=== PATIENT | female | born 1985 | race Caucasian/White ===

== ENCOUNTER 2018-10-07 08:00 | Emergency (ER) | payer OTHER ==
[~2018-10-07] VITALS: Ht 152.4 cm; Wt 63.0 kg
[~2018-10-07 08:00] MED LIST: ACET325T45 PO; TRAM50TA2 PO
[2018-10-07 08:01] VITALS: Ht 152.4 cm; Wt 63.0 kg
[2018-10-07] MEDS ORDERED: KETOROLAC 30 MG INJ IM STA (08:17)
[2018-10-07] MEDS ORDERED: ONDANSETRON (ODT) 4 MG TAB ODT STA (08:17)
[2018-10-07 09:38] VITALS: BP 112/67; PULSE 68; RESP 18
--- NOTE | 2018-10-07 09:39 | ERD ---
ER Documentation Chief Complaint Chief Complaint Rt upper quadrant pain w/nausea, >mths, worse after eating. HPI 33-year-old female presented to ED for right upper quadrant pain over the last few months. Patient states the pain is worse after she eats she describes as a sharp sensation that comes and goes. The patient has not seen any healthcare provider for this yet. Patient is presenting afebrile with vitals and stable limit. Patient states she is pretty healthy and has no past medical history does not take medications for anything and has no allergies to medications. Patient does not think she is . Patient rates the pain 8 out of 10 when it is at its worst but currently she is not experiencing discomfort. ROS All systems reviewed and are negative except as per history of present illness. Medications Home Meds Active Scripts Acetaminophen* (Acetaminophen*) 325 Mg Tablet, 325 MG PO Q4H PRN for PAIN AND OR ELEVATED TEMP, #30 TAB Prov:ADALI RYAN PA-C 10/07/18 Tramadol HCl (Tramadol HCl) 50 Mg Tablet, 50 MG PO Q4 PRN for PAIN, #20 TAB Prov:ADALI RYAN PA-C 10/07/18 Allergies Allergies: Coded Allergies: No Known Allergy (Unverified , 10/07/18) PMhx/Soc Medical and Surgical Hx: pt denies Medical Hx, pt denies Surgical Hx Hx Alcohol Use: No Hx Substance Use: No Hx Tobacco Use: Yes (OCCASSIONAL) Smoking Status: Never smoker FmHx Family History: No diabetes, No coronary disease, No other Physical Exam Vitals Vital Signs Date Temp Pulse Resp B/P (MAP) Pulse Ox O2 O2 Flow FiO2 Time Delivery Rate 10/07/18 97.8 67 18 118/65 100 08:01 (82) Physical Exam GENERAL: The patient is well-appearing, well-nourished, in no acute distress HEENT: Atraumatic. Conjunctivae are pink. Pupils equal, round, and reactive to light. There is no scleral icterus. Tympanic membranes clear bilaterally. Oropharynx clear. No nystagmus or photophobia. NECK: C-spine is soft and supple. There is no meningismus. There is no cervical lymphadenopathy. CHEST: Clear to auscultation bilaterally. There are no rales, wheezes or rhonchi. HEART: Regular rate and rhythm. No murmurs, clicks, rubs or gallops. ABDOMEN: Right upper quadrant tenderness to palpation, positive Moise sign. BACK: No midline or flank tenderness. Result Diagram: 10/07/1882310/07/18823 Results 24 hrs Laboratory Tests Test 10/07/18 08:24 10/07/18 08:32 White Blood Count 7.5 10^3/ul Red Blood Count 4.70 10^6/ul Hemoglobin 13.6 g/dl Hematocrit 41.8 % Mean Corpuscular Volume 88.9 fl Mean Corpuscular Hemoglobin 28.9 pg Mean Corpuscular Hemoglobin Concent 32.5 g/dl Red Cell Distribution Width 12.9 % Platelet Count 248 10^3/UL Mean Platelet Volume 9.8 fl Immature Granulocytes % 0.300 % Neutrophils % 64.0 % Lymphocytes % 26.4 % Monocytes % 7.2 % Eosinophils % 1.7 % Basophils % 0.4 % Nucleated Red Blood Cells % 0.0 /100WBC Immature Granulocytes # 0.020 10^3/ul Neutrophils # 4.8 10^3/ul Lymphocytes # 2.0 10^3/ul Monocytes # 0.5 10^3/ul Eosinophils # 0.1 10^3/ul Basophils # 0.0 10^3/ul Nucleated Red Blood Cells # 0.0 10^3/ul Sodium Level 140 mmol/L Potassium Level 3.8 mmol/L Chloride Level 104 mmol/L Carbon Dioxide Level 28 mmol/L Anion Gap 8 Blood Urea Nitrogen 14 mg/dl Creatinine 0.51 mg/dl Est Glomerular Filtrat Rate mL/min > 60 mL/min Glucose Level 95 mg/dl Calcium Level 9.6 mg/dl Total Bilirubin 0.5 mg/dl Direct Bilirubin 0.00 mg/dl Indirect Bilirubin 0.5 mg/dl Aspartate Amino Transf (AST/SGOT) 20 IU/L Alanine Aminotransferase (ALT/SGPT) 24 IU/L Alkaline Phosphatase 47 IU/L Total Protein 7.7 g/dl Albumin 4.4 g/dl Globulin 3.30 g/dl Albumin/Globulin Ratio 1.33 POC Beta HCG, Qualitative NEGATIVE Current Medications Medications Dose Sig/Arabella Start Time Status Last (Trade) Ordered Route PRN Stop Time Admin Dose Reason Admin Ondansetron 4 mg ONCE STAT 10/07/18 DC 10/07/18 HCl (Zofran ODT 08:17 08:36 Odt) 8/12/19 08:20 Ketorolac 30 mg ONCE STAT 10/07/18 DC 10/07/18 Tromethamine IM : 08:37 (Toradol) 10/07/18 08:20 Procedures/MDM ED course: The patient was stable throughout the ED course. The patient and/or family informed of laboratory and diagnostic imaging results throughout the ED course. Radiology: PROCEDURE: US Abdomen (right upper quadrant). CLINICAL INDICATION: Abdominal pain TECHNIQUE: Multiple real-time longitudinal and transverse images of the right upper quadrant of the abdomen were acquired utilizing a curved array transducer. Images were reviewed on a high-resolution PACS workstation. COMPARISON: None FINDINGS: The liver is normal in size and echogenicity without focal mass or intrahepatic biliary dilatation. Multiple stones are present in the gallbladder. There is no pericholecystic fluid or gallbladder wall thickening. No intra or extrahepatic biliary dilatation is seen. The common bile duct measures 2.5 mm in maximal dimension. The visualized portions of the pancreas are unremarkable with obscuration of the tail of the pancreas. No free fluid is identified. The right kidney measures 11.9 cm in length. There is normal echogenicity within the right kidney. There is no perinephric fluid collection. No hydronephrosis, mass, or calculus is seen. IMPRESSION: Cholelithiasis without evidence of acute cholecystitis. Otherwise, unremarkable right upper quadrant ultrasound. Medications given in ER: Toradol Zofran Patient tolerated medication well with no adverse reactions. Patient reported improvement in pain. Medical decision makin-year-old female presented to ED for right upper quadrant pain with nausea over the last few months. Patient states the pain is worse after she eats. Physical exam revealed a tender right upper quadrant that re-provoked the pain. Patient states the pain was an 8 out of 10. Patient was given Toradol and Zofran for nausea and pain. The patient was sent for an ultrasound which revealed Cholelithiasis without evidence of acute cholecystitis. The patient is afebrile and screening was negative. The patient's blood work was u nremarkable and showed no signs of leukocytosis. At this time I have low suspicion for DKA, bowel perforation, cholecystitis, choledocholithiasis, ascending cholangitis, hepatic abscess, pancreatitis, PUD, gastritis, GERD, splenic rupture, diverticulitis,, pyelonephritis, nephrolithiasis, appendicitis, constipation, , ectopic , PID, ovarian torsion or tubo-ovarian abscess. Upon reevaluation the patient reports an improvement in symptoms of nausea and pain. Advised patient that she needs to follow-up with a primary care provider may need to see a GI doctor to have her gallbladder removed if it becomes more symptomatic. The patient is agreement treatment plan all questions were answered upon discharge Prescription for home: Tramadol Motrin I have discussed with the patient proper use and common side effects to expert with the medication . I advised the patient/family to speak with the pharmacist dispensing the medication to be advised of any potential drug int eractions with other medication or supplements they may be taking. Discharge: At this time, patient is stable for discharge and outpatient management. I have instructed the patient to follow-up with his\her primary care physician in 1 to 2 days. I have discussed with the patient the possibility of needing to see a specialist for further work-up and imaging studies if symptoms persist. I have instructed the patient to promptly return to the ER for any new or worsening symptoms including increased pain, fever, nausea, vomiting, weakness or LOC. The patient and\or family expressed understanding of and agreement with this plan. All questions were answered. Home care instructions were provided. Disclaimer: Inadvertent spelling and grammatical errors are likely due to EHR\dictation s oftware use and do not reflect on the overall quality of patient care. Also, please note that the electronic time recorded on the note does not necessarily reflect the actual time of the patient encounter. Departure Diagnosis: Primary Impression: Cholelithiasis Cholelithiasis location: gallbladder Cholecystitis presence: without cholecystitis Biliary obstruction: without biliary obstruction Qualified Codes: K80.20 - Calculus of gallbladder without cholecystitis without obstruction Additional Impression: Abdominal pain Abdominal location: right upper quadrant Qualified Codes: R10.11 - Right upper quadrant pain Condition: Stable Patient Instructions: Abdominal Pain, Gallstones [facility] YOU HAVE RECEIVED A MEDICAL SCREENING EXAM AND THE RESULTS INDICATE THAT YOU DO NOT HAVE A CONDITION THAT REQUIRES URGENT TREATMENT IN THE EMERGENCY DEPARTMENT. FURTHER EVALUATION AND TREATMENT OF YOUR CONDITION CAN WAIT UNTIL YOU ARE SEEN IN YOUR DOCTORS OFFICE WITHIN THE NEXT 1-2 DAYS. IT IS YOUR RESPONSIBILITY TO MAKE AN APPOINTMENT FOR FOLOW-UP CARE. IF YOU HAVE A PRIMARY DOCTOR --you should call your primary doctor and schedule an appointment IF YOU DO NOT HAVE A PRIMARY DOCTOR YOU CAN CALL OUR PHYSICIAN REFERRAL HOTLINE AT IF YOU CAN NOT AFFORD TO SEE A PHYSICIAN YOU CAN CHOSE FROM THE FOLLOWING [facility] [address] [facility] [address] [facility] [address] [facility] [address] [facility] [address] [facility]. [facility] [address] [facility] YOU HAVE RECEIVED A MEDICAL SCREENING EXAM AND THE RESULTS INDICATE THAT YOU DO NOT HAVE A CONDITION THAT REQUIRES URGENT TREATMENT IN THE EMERGENCY DEPARTMENT. FURTHER EVALUATION AND TREATMENT OF YOUR CONDITION CAN WAIT UNTIL YOU ARE SEEN IN YOUR DOCTORS OFFICE WITHIN THE NEXT 1-2 DAYS. IT IS YOUR RESPONSIBILITY TO MAKE AN APPOINTMENT FOR FOLOW-UP CARE. IF YOU HAVE A PRIMARY DOCTOR --you should call your primary doctor and schedule and appointment IF YOU DO NOT HAVE A PRIMARY DOCTOR YOU CAN CALL OUR PHYSICIAN REFERRAL HOTLINE AT . IF YOU CAN NOT AFFORD TO SEE A PHYSICIAN YOU CAN CHOSE FROM THE FOLLOWING [facility]: [facility] [address] [place] [address] [facility] [address] [place] [address] [facility] [address] [place] [address] Additional Instructions: Call your primary care doctor TOMORROW for an appointment during the next 1-2 days.See the doctor sooner or return here if your condition worsens before your appointment time. ADALI RYAN PA-C Oct 07, 2018 09:39
== END 2018-10-07 09:40 | disposition home or self-care (01) ==
LOC: FTE 08:00
DX: K80.20 Calculus of gallbladder without cholecystitis without obstruction (principal)
CPT/HCPCS: 76705; 80053; 81025; 85025; 96372; J1885; Z7502; Z7610